=== PATIENT | male | born 1965 | race Caucasian/White ===

== ENCOUNTER 2017-09-08 14:50 | Emergency (ER) | payer OTHER ==
[2017-09-08] MEDS ORDERED: bacitracin 15gm ointment TP ONE (15:25)
[2017-09-08 16:06] VITALS: BP 146/87
== END 2017-09-08 16:05 | disposition home or self-care (01) ==
LOC: ER 14:51
DX: S01.311D Laceration without foreign body of right ear, subsequent encounter (principal); X58.XXXD Exposure to other specified factors, subsequent encounter
CPT/HCPCS: 99282

== ENCOUNTER → 2017-12-02 | Emergency (ER) | payer MEDICAID ==
[~2017-12-02] VITALS: Ht 180.3 cm; Wt 82.0 kg
[~2017-12-02] MED LIST: ALBU8.5H8 INH; METH4TAB81 PO; ipratropium/albuterol 3ml nebule NEB ONE
[2017-12-02 12:58] VITALS: BP 150/67
== END | disposition home or self-care (01) ==
LOC: ER 12:54
DX: R05 Cough (principal); G47.30 Sleep apnea, unspecified; F17.200 Nicotine dependence, unspecified, uncomplicated; Z79.899 Other long term (current) drug therapy; Z56.0 Unemployment, unspecified
CPT/HCPCS: 71046; 94640; 94760; 99284

== ENCOUNTER 2019-09-30 01:33 | Emergency (ER) | payer BC, MEDICAID ==
[~2019-09-30] VITALS: Ht 180.3 cm; Wt 95.5 kg
[~2019-09-30 01:33] MED LIST changes: -ipratropium/albuterol 3ml nebule NEB ONE
[2019-09-30 04:28] LABS: CLARITY,URINE CLEAR (Clear); COLOR,URINE YELLOW (Yellow); GLUCOSE, URINE NEGATIVE (Neg); KETONES,URINE NEGATIVE (Neg); LEUKOCYTE ESTERASE ,URINE NEGATIVE (Neg); NITRITES, URINE NEGATIVE (Neg); OCCULT BLOOD,URINE NEGATIVE (Neg); PROTEIN,URINE NEGATIVE (Neg); UROBILINOGEN,URINE 0.2 E.U/dL (0.2-1.0)
[2019-09-30 04:29] LABS: UA COLLECTION TYPE CLN CATCH MIDSTREAM
[2019-09-30 04:33] LABS: BASOPHILS # (AUTO) 0.1 X10'3 (0-0.2); BASOPHILS % (AUTO) 0.8 % (0-1); EOSINOPHILS # (AUTO) 0.1 X10'3 (0-0.9); EOSINOPHILS % (AUTO) 1.9 % (0-6); HEMOGLOBIN 16.2 g/dl (14.0-17.9); LYMPHOCYTES % (AUTO) 32.2 % (21-51); MEAN CORPUSCULAR HEMOGLOBIN 33.4 PG (27.0-31.0); MEAN CORPUSCULAR HGB CONC 35.3 g/dL (33.0-36.5); MEAN CORPUSCULAR VOLUME 94.6 FL (78-98); MONOCYTES # (AUTO) 0.6 X10'3 (0-0.9); MONOCYTES % (AUTO) 8.8 % (2-12); NEUTROPHILS # (AUTO) 3.6 X10'3 (1.8-7.7); NEUTROPHILS % (AUTO) 56.3 % (42-75); PLATELET COUNT 416 X10'3 (140-440); RED BLOOD COUNT 4.86 X10'6 (4.70-6.10); WHITE BLOOD COUNT 6.3 X10'3 (4.5-11.0)
[2019-09-30 04:43] LABS: ALANINE AMINOTRANSFERASE 18 U/L (12-78); ALBUMIN 3.9 G/DL (3.4-5.0); ALBUMIN/GLOBULIN RATIO 1.1 (1.1-1.5); ALKALINE PHOSPHATASE 73 IU/L (46-116); ANION GAP 5 (8-16); ASPARTATE AMINO TRANSFERASE 13 U/L (10-37); BILIRUBIN,TOTAL 0.5 MG/DL (0.1-1.0); BLOOD UREA NITROGEN 15 MG/DL (7-18); CALCIUM 9.4 MG/DL (8.5-10.1); CHLORIDE 103 MMOL/L (99-107); CREATININE 0.88 MG/DL (0.60-1.10); GLUCOSE 102 MG/DL (70-104); POTASSIUM 3.8 MMOL/L (3.5-5.1); SODIUM 138 MMOL/L (135-145); TOTAL PROTEIN 7.6 G/DL (6.4-8.2); eGFR 90 ML/MIN
[2019-09-30 04:43] LABS: URINE AMPHETAMINE SCREEN NEGATIVE (Neg); URINE BARBITUATE SCREEN NEGATIVE (Neg); URINE BENZODIAZEPINES SCREEN POSITIVE (Neg); URINE CANNABINOID SCREEN NEGATIVE (Neg); URINE COCAINE SCREEN NEGATIVE (Neg); URINE METHADONE SCREEN NEGATIVE (Neg); URINE OPIATE SCREEN NEGATIVE (Neg); URINE PHENCYCLIDINE SCREEN NEGATIVE (Neg)
[2019-09-30 04:56] LABS: ETHANOL < 0.010 GM/DL (0.0-0.010)
[2019-09-30] MEDS ORDERED: QUET50TA22 PO (05:00)
[2019-09-30] MEDS ORDERED: GABA-532 PO (05:00)
[2019-09-30 06:03] VITALS: BP 96/53
--- NOTE | 2019-09-30 06:25 | NUR ---
pt is resting with eyes closed. no signs of distress noted
[2019-09-30] MEDS: gabapentin 300mg capsule PO SCH ×2 (07:13→13:00)
--- NOTE | 2019-09-30 07:44 | NUR ---
pt resting with eyes closed. morning medications given.
[2019-09-30] MEDS ORDERED: QUEtiapine 25mg tablet PO SCH (08:00)
--- NOTE | 2019-09-30 08:31 | NUR ---
pt is sleeping at this time. no signs of distress noted
--- NOTE | 2019-09-30 09:24 | NUR ---
pt resting with eyes closed at this time. no signs of distress noted
--- NOTE | 2019-09-30 10:22 | NUR ---
pt resting at this time. no signs of distress noted
--- NOTE | 2019-09-30 11:14 | NUR ---
pt resting with eyes closed. no signs of distress noted
--- NOTE | 2019-09-30 12:10 | NUR ---
PT RESTING AT THIS TIME. NO SIGNS OF DISTRESS
--- NOTE | 2019-09-30 13:24 | NUR ---
pt anxious wanting to go home. it was explained to pt that he needed to be evaluated. pt verbalized understanding
--- NOTE | 2019-09-30 14:34 | NUR ---
PT SITTING UP IN BED. NO SIGNS OF DISTRESS NOTED
--- NOTE | 2019-09-30 16:02 | NUR ---
pt resting at this time. no signs of distress
== END 2019-09-30 18:04 | disposition home or self-care (01) ==
LOC: ER 01:39
DX: F31.9 Bipolar disorder, unspecified (principal); F17.200 Nicotine dependence, unspecified, uncomplicated; Z56.0 Unemployment, unspecified; Z72.89 Other problems related to lifestyle; Z79.899 Other long term (current) drug therapy
CPT/HCPCS: 36415; 80053; 80305; 80320; 81003; 84443; 85025; 99285

== ENCOUNTER 2020-03-26 19:35 | Emergency (ER) | payer BC ==
[~2020-03-26] VITALS: Ht 180.3 cm; Wt 81.8 kg
[~2020-03-26 19:35] MED LIST changes: -ALBU8.5H8 INH; +GABA-532 PO; -METH4TAB81 PO; +QUET50TA22 PO
[2020-03-26] MEDS ORDERED: CYCL-1 PO (21:09)
[2020-03-26] MEDS ORDERED: ketorolac trometh inj. 60 MG/2 ML VIAL IM ONE (21:10)
[2020-03-26] MEDS ORDERED: DICL25TA12 PO (21:39)
[2020-03-26 21:44] VITALS: BP 140/78
--- NOTE | 2020-03-27 18:05 | NUR ---
PT CALLED STATING HE THE DR TOLD HIM HE WAS GOING TO GET AN RX FOR FLEXERIL AND HE STATES HE RECEIVED A DIFFERENT RX. PT STATES HE WANTS HIS RX FOR FLEXERIL AND A NOTE FOR WORK. PT INFORMED HE WOULD NEED TO CHECK BACK IN TO RECEIVE AT NOTE AND BECAUSE IT STATES IN HIS DC SUMMERY HE DID RECIEVE A SCRIPT FOR FLEXERIL HE WOULD NEED TO BE SEEN AGAIN. PT STATES "ITS ONLY FLEXERIL NOT LIKE ITS A NARCOTIC OR ANYTHING." AGAIN STATED TO PT HE WOULD NEED TO GOME IN AND BE SEEN.
== END 2020-03-26 21:45 | disposition home or self-care (01) ==
LOC: ER 19:36
DX: R07.89 Other chest pain (principal); M25.512 Pain in left shoulder; F31.9 Bipolar disorder, unspecified; Z98.890 Other specified postprocedural states; Z72.89 Other problems related to lifestyle; Z56.0 Unemployment, unspecified; X50.0XXA Overexertion from strenuous movement or load, initial encounter; Y93.89 Activity, other specified; Y92.89 Other specified places as the place of occurrence of the external cause; Y99.8 Other external cause status; Z79.899 Other long term (current) drug therapy
CPT/HCPCS: 93005; 96372; 99283; J1885

== ENCOUNTER 2021-03-07 15:54 | Emergency (ER) | payer BC ==
[~2021-03-07] VITALS: Ht 180.3 cm; Wt 95.5 kg
[~2021-03-07 15:54] MED LIST changes: +CYCL-1 PO; +DICL25TA12 PO; -QUET50TA22 PO; +QUET50TA24 PO
[2021-03-07 16:11] VITALS: BP 145/89
== END 2021-03-07 16:18 ==
LOC: ER 15:56
DX: F15.921 Other stimulant use, unspecified with intoxication delirium (principal); I10 Essential (primary) hypertension; Z02.89 Encounter for other administrative examinations
CPT/HCPCS: 99283

== ENCOUNTER 2022-07-11 18:29 | Emergency (ER) | payer BC, MEDICAID ==
[~2022-07-11] VITALS: Ht 180.3 cm; Wt 86.4 kg
[2022-07-11 18:49] VITALS: BP 108/75
[2022-07-11] MEDS ORDERED: dexamethasone sod phosphate 10mg/ml inj IM STA (19:17)
== END 2022-07-11 19:43 | disposition home or self-care (01) ==
LOC: ER 18:30
DX: L23.7 Allergic contact dermatitis due to plants, except food (principal); F31.9 Bipolar disorder, unspecified; Z98.890 Other specified postprocedural states; Z72.89 Other problems related to lifestyle; Z56.0 Unemployment, unspecified; Z79.899 Other long term (current) drug therapy
CPT/HCPCS: 96372; 99283; J1100

== ENCOUNTER 2024-02-20 13:39 | Outpatient (CLI) | payer MEDICAID | END 2024-02-20 23:59 | disposition home or self-care (01) | LOC: RAD 13:39 | PROVIDERS: ATTEND Family Medicine | DX: Z12.2 Encounter for screening for malignant neoplasm of respiratory organs (principal); J43.2 Centrilobular emphysema; J98.11 Atelectasis; I71.21 Aneurysm of the ascending aorta, without rupture; Z87.891 Personal history of nicotine dependence | CPT/HCPCS: 71271 ==

== ENCOUNTER 2024-03-08 18:12 | Emergency (ER) | payer MEDICAID ==
[~2024-03-08] VITALS: Ht 180.3 cm; Wt 89.4 kg
[2024-03-08] MEDS: fentaNYL/PF 50MCG/1 ML 2ML syringe IV ONE ×2 (18:38→19:24)
[2024-03-08] MEDS: normal saline 1000ML IV soln IVB ONE (18:50)
[2024-03-08] MEDS ORDERED: SILV50CR31 TP (19:38)
[2024-03-08] MEDS ORDERED: HYDR-3965 PO (19:40)
[2024-03-08] MEDS: bacitracin 15gm ointment TP ONE (20:24)
[2024-03-08 20:27] VITALS: BP 146/85; PULSE 52; RESP 16; TEMP 98; O2SAT 100
== END 2024-03-08 20:36 | disposition home or self-care (01) ==
LOC: ER 18:13
DX: T22.111A Burn of first degree of right forearm, initial encounter (principal); T23.101A Burn of first degree of right hand, unspecified site, initial encounter; F31.9 Bipolar disorder, unspecified; Z79.899 Other long term (current) drug therapy; X08.8XXA Exposure to other specified smoke, fire and flames, initial encounter; Y93.89 Activity, other specified; Y92.89 Other specified places as the place of occurrence of the external cause; Y99.8 Other external cause status
CPT/HCPCS: 16000; 96374; 96376; 99284; J3010; J7030; A6258